=== PATIENT | male | born 1990 | race Two or more races ===

== ENCOUNTER 2020-09-26 13:32 | Outpatient (CLI) | payer OTHER | END 2020-09-26 13:43 | disposition home or self-care (01) | LOC: RAD 13:32 | PROVIDERS: ATTEND Orthopaedic Surgery | DX: M25.551 Pain in right hip (principal) ==

== ENCOUNTER 2020-10-01 13:26 | Outpatient (CLI) | payer OTHER | END 2020-10-01 13:28 | disposition home or self-care (01) | LOC: TOM 13:26 | PROVIDERS: ATTEND Orthopaedic Surgery | DX: M25.551 Pain in right hip (principal) ==